=== PATIENT | male | born 1995 | race Two or more races ===

== ENCOUNTER 2018-11-09 20:59 | Emergency (ER) | payer OTHER ==
[~2018-11-09] VITALS: Ht 180.3 cm; Wt 104.3 kg
== END 2018-11-09 23:31 | disposition home or self-care (01) ==
LOC: ER 20:59
DX: S62.396A Other fracture of fifth metacarpal bone, right hand, initial encounter for closed fracture (principal); W22.8XXA Striking against or struck by other objects, initial encounter; Y93.89 Activity, other specified; Y92.89 Other specified places as the place of occurrence of the external cause; Y99.8 Other external cause status

== ENCOUNTER 2020-05-12 21:51 | Emergency (ER) | payer OTHER ==
[~2020-05-12] VITALS: Ht 154.9 cm; Wt 99.8 kg
[2020-05-12] MEDS ORDERED: ACETAMINOPHEN650 M2 PO (23:18)
== END 2020-05-12 23:16 | disposition home or self-care (01) ==
LOC: ER 21:51
DX: M26.621 Arthralgia of right temporomandibular joint (principal); R51.9 Headache, unspecified; S06.0X0S Concussion without loss of consciousness, sequela; S00.83XS Contusion of other part of head, sequela; Y04.2XXS Assault by strike against or bumped into by another person, sequela

== ENCOUNTER → 2020-09-30 | Emergency (ER) | payer OTHER ==
[~2020-09-30] VITALS: Ht 180.3 cm; Wt 99.8 kg
[~2020-09-30] MED LIST: ACETAMINOPHEN650 M2 PO
== END | disposition home or self-care (01) ==
LOC: ER 05:56
DX: S21.122A Laceration with foreign body of left front wall of thorax without penetration into thoracic cavity, initial encounter (principal); S51.822A Laceration with foreign body of left forearm, initial encounter; S31.125A Laceration of abdominal wall with foreign body, periumbilic region without penetration into peritoneal cavity, initial encounter; Y08.89XA Assault by other specified means, initial encounter; Y93.89 Activity, other specified; Y92.89 Other specified places as the place of occurrence of the external cause; Y99.8 Other external cause status